=== PATIENT | female | born 1965 | race Caucasian/White ===

== ENCOUNTER 2016-12-12 17:56 | Inpatient (IN) ==
[2016-12-12] MEDS ORDERED: SODIUM CHLORIDE 0.9% 2,000 ML IV STA (18:22)
[2016-12-12] MEDS ORDERED: METOCLOPRAMIDE 10 MG/2 ML VIAL IV STA (18:22)
[2016-12-12] MEDS ORDERED: ONDANSETRON 4 MG/2 ML VIAL IV STA (18:22)
--- NOTE | 2016-12-12 18:29 | Emergency Department Note ---
Arrival - Arrival Chief Complaint: Altered Mental Status Stated Complaint: overdose ED Nursing Triage Note: pt found in the yard by a home health nurse without her pants on passed out. smells of etoh Mode of Arrival: Stretcher Limitations: Altered Mental Status Source: EMS Time Seen by Provider: 12/12/16 18:22 - History of Present Illness HPI Narrative: This 51-year-old white female presents smelling of alcohol and severely intoxicated. Neighbors were called and when EMS arrived the patient was found without her pants on intoxicated on the front on. The patient cannot give any cognizant history at this time. Onset (ago): hour(s) (Patient was found to hours prior to presentation) Date of Last Menstrual Period: wont answer Allergies/Adverse Reactions: Allergies Allergy/AdvReac Type Severity Reaction Status Date / Time No Known Allergies Allergy Unverified 12/12/16 18:06 Home Medications: Home Medications Medication Instructions Recorded Confirmed Type Budesonide/Formoterol 80-4.5 2 puff INH BID 12/12/16 History [Symbicort 80-4.5] Lisinopril [Lisinopril] 5 mg PO DAILY 12/12/16 History Methocarbamol Tab [Robaxin Tab] 500 mg PO TID PRN 12/12/16 History Mirtazapine [Mirtazapine] 15 mg PO BEDTIME 12/12/16 History Montelukast Tab [Singulair Tab] 10 mg PO DAILY 12/12/16 History Omeprazole [Omeprazole] 20 mg PO BID 12/12/16 History Oxycodone HCl/Acetaminophen 1 each PO BID PRN 12/12/16 History [Oxycodone-Acetaminophen 10-325] Review of System - Review of System ROS unobtainable: due to mental status Medical,Surgical,& Family Hx - Medical History Psychological: History of: Bipolar Disorder - Social History Smoking Status: Unknown if ever smoked Exam Physical Examination: GENERAL: Disheveled intoxicated white female. HEENT: Normocephalic. No trauma. Moist mucous membranes. EOMI. PERRLA. ENT NML NECK: Supple. No adenopathy. CARDIAC: Regular. No murmurs. Heart rate 102 CHEST: Clear to auscultation. No respiratory distress. O2 sat 100% ABDOMEN: Soft. Nontender. Active bowel sounds. EXTREMITIES: No trauma. Normal ROM. No pedal edema. SKIN: No diaphoresis. No rash. NEURO: Alert but intoxicated and lethargic. Motor, sensory, vibratory intact. No focal deficits. Vital Signs: Vital Signs Temperature 98.6 F 12/12/16 18:20 Pulse Rate 94 H 12/12/16 18:30 Respiratory Rate 18 12/12/16 18:30 Blood Pressure 133/82 12/12/16 18:30 O2 Sat by Pulse Oximetry 97 12/12/16 18:30 Course Course Narrative: Given the slow drop in alcohol with time and the patient's persistent intoxication admission is necessary. - Reevaluation(s) Reevaluation #1: Discussed with patient the recommendation for admission. - Consultations Consultation #1: Discussed with the hospitalist service will admit for further evaluation treatment peer Results - Labs CBC & BMP: 12/12/16 18:24 12/12/16 18:24 Labs: I reviewed the laboratory and noted the significantly elevated alcohol level but otherwise grossly normal lab. I reviewed the follow-up alcohol level of 295. - Impressions EKG: Sinus rhythm at 94 with normal TN interval and QRS duration. Right axis deviation noted with diffuse nonspecific ST changes. No acute injury pattern noted. - Diagnostic Findings Procedure: Chest x-ray: image reviewed by me, report reviewed by me (Excepting for minimal mid left lung field atelectasis, normal chest), CT: image reviewed by me, report reviewed by me (Head: Normal brain) Disposition Clinical Impression: Alcohol intoxication Case discussed with: patient Condition: Guarded
[2016-12-12] MEDS ORDERED: METOCLOPRAMIDE 10 MG/2 ML VIAL ONE (18:37)
[2016-12-12] MEDS ORDERED: ONDANSETRON 4 MG/2 ML VIAL ONE (18:38)
[2016-12-12 18:43] LABS: Basophils # 0.1 10*3/uL (0.0-0.2); Basophils % 0.8 % (0.0-0.8); Eosinophils # 0.3 10*3/uL (0.0-0.87); Eosinophils % 2.7 % (0.00-10.9); Hematocrit 46.7 VOL% (35.7-47.0); Hemoglobin 15.7 GM/DL (12.0-16.0); Immature Granulocytes % 0.3 %; Immature Granulocytes Absolute 0.03 #; Lymphocytes # 2.4 10*3/uL (1.4-4.0); Lymphocytes % 22.6 % (21.3-54.2); Mean Corpuscular HGB Conc 33.6 GM/DL (32-36); Mean Corpuscular Hemoglobin 32 PG (27-34); Mean Corpuscular Volume 95.5 FL (87-102); Mean Platelet Volume 9.7 FL (9.6-12.0); Monocytes # 0.9 10*3/uL (0.11-0.8); Monocytes % 8.2 % (1.7-12.7); Neutrophils # 6.9 10*3/uL (1.4-7.4); Neutrophils % 65.4 % (38.7-73.9); Platelet Count 353 T/CUMM (130-400); Red Blood Count 4.89 MC/CUMM (3.8-5.5); Red Cell Distribution Width 13.5 % (9.3-17.3); White Blood Count 10.6 T/CUMM (4-12)
--- NOTE | 2016-12-12 18:53 | CT Report ---
CT of the head without contrast. Indication: Mental status changes. The ventricles are normal in size and configuration. There is no mass effect, midline shift, or area of hemorrhage. No ischemic lesions are seen. The calvarium is intact. The included paranasal sinuses and the mastoid air cells are clear. Impression: No acute intracranial abnormality is seen. The CT exam was performed using one or more of the following dose reduction techniques: Automated exposure control, adjustment of the mA and/or kV according to patient size, or use of iterative reconstruction technique. PROCEDURE INTERPRETED AT [facility] DEPARTMENT OF RADIOLOGY Final Report Signed by: Dr. Christi Sanders
--- NOTE | 2016-12-12 18:55 | XRay Report ---
Portable chest. Indication: Altered mental status. The heart is upper limits of normal in size. The pulmonary vasculature is normal. There is minimal atelectasis at the left midlung field. The right lung is clear. No pneumothorax or pleural effusion. Normal osseous structures. Engorged SVC. Impression: Minimal atelectasis in the left midlung field. Mild prominence of the SVC. PROCEDURE INTERPRETED AT [facility] DEPARTMENT OF RADIOLOGY Final Report Signed by: Dr. Christi Sanders
[2016-12-12 18:58] LABS: INR 0.9; Partial Thromboplastin Time 27.1 SECS (0-40)
--- NOTE | 2016-12-12 18:59 | Order Completion Report ---
See report scanned to EMR
[2016-12-12 19:10] LABS: Alanine Aminotransferase 18 U/L (13-56); Albumin 3.6 G/DL (3.4-5.0); Alkaline Phosphatase 86 U/L (45-117); Aspartate Amino Transferase 21 U/L (0-37); Bilirubin,Total < 0.39 MG/DL (0.2-1.0); Blood Urea Nitrogen 8 MG/DL (7-18); Calcium 8.6 MG/DL (8.5-10.1); Glucose 82 MG/DL (74-106); Osmolality,Calculated 279.1 MOS/KG (273-304); Potassium 3.8 MMOL/L (3.5-5.1); Sodium 142 MMOL/L (136-145); Total Protein 7.1 G/DL (6.4-8.3); Troponin I Only < 0.015 NG/ML (0.00-0.045)
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
[2016-12-12 23:55] LABS: Apearance,Urine CLEAR (Clear); Bilirubin,Urine Negative (Negative); Blood, Urine Small mg/dL (Negative); Glucose,Urine (UA) Negative (Negative); Ketones,Urine Negative (Negative); Mucus,Urine Occasional /LPF (Occasional); Nitrite,Urine Negative (Negative); Protein,Urine Negative; RBC,Urine <1 /HPF (0-4); Squamous Epithelial Cell,Urine Occasional /HPF (0-10); Urine Color Colorless (Yellow); Urine Specific Gravity 1.006 (1.001-1.035); Urine Urobilinogen < 2.0 EU/DL (0.2-1.0); WBC,Urine <1 /HPF (0-6)
[2016-12-12 23:59] LABS: Barbiturates Screen,Urine Negative (Negative); Benzodiazepines Screen,Urine Negative (Negative); Cannabinoid Screen,Urine Negative (Negative); Opiate Screen,Urine Negative (Negative); Phencyclidine Screen,Urine Negative (Negative)
[2016-12-13] MEDS ORDERED: ACETAMINOPHEN 325 MG TABLET PO PRN (00:23)
[2016-12-13] MEDS ORDERED: NICOTINE 21 MG/24 HR PATCH TRANSDERM PRN (00:23)
[2016-12-13] MEDS ORDERED: ONDANSETRON 4 MG/2 ML VIAL IV PRN (00:23)
[2016-12-13] MEDS ORDERED: PANTOPRAZOLE 40 MG VIAL IV SCH (00:23)
[2016-12-13] MEDS: oxyCODONE/ACETAMINOPHEN 5-325 MG TABLET PO PRN ×3 (00:41→13:10)
[2016-12-13] MEDS: SODIUM CHLORIDE 0.9% 1,000 ML IV SCH ×2 (00:44→07:25)
[2016-12-13] MEDS ORDERED: BUDESONIDE/FORMOTEROL 80-4.5 INHALER 6.9 GM INH SCH (09:00)
[2016-12-13] MEDS ORDERED: ENOXAPARIN 40 MG/0.4 ML SYRINGE SUBCUT SCH (09:00)
[2016-12-13] MEDS ORDERED: MONTELUKAST 10 MG TABLET PO SCH (09:00)
[2016-12-13] MEDS ORDERED: DOCUSATE SODIUM 100 MG CAPSULE PO SCH (09:00)
[2016-12-13] MEDS ORDERED: LISINOPRIL 5 MG TABLET PO SCH (09:00)
--- NOTE | 2016-12-13 11:06 | Hospitalist Progress Note ---
Assessment and Plan (1) Alcohol intoxication Status: Acute Assessment and plan: She is significantly improved today. There is no evidence of delirium tremens. I will transfer to a medical bed and if stable discharge tomorrow morning. Current Visit: Yes Qualifiers: Complication of substance-induced condition: uncomplicated Qualified Code(s ): F10.920 - Alcohol use, unspecified with intoxication, uncomplicated (2) Chronic pain Status: Chronic Current Visit: No Qualifiers: Chronic pain type: chronic pain syndrome Qualified Code(s): G89.4 - Chronic pain syndrome Hospitalist: Subjective Interval history: Patient is awake and alert today with no complaints. She states that she had no suicide intentions. She states that she was merely drinking a considerable amount of alcohol with a friend. Exam - Constitutional Vitals: Period Temp Pulse Resp BP Sys/Mohr Pulse Ox Last 24 Hr 98.3 F-99 F 81-104 12-22 95-147/60-91 90-100 General appearance: no acute distress - Head Head exam: Present: normal inspection - Neck Neck exam: Present: normal inspection - Respiratory Respiratory exam: Present: clear to auscultation bilaterally - Cardiovascular Cardiovascular exam: Present: regular rate and rhythm - GI/Abdominal GI/Abdominal exam: Present: normal bowel sounds, soft, other (Nontender with no palpable masses or hepatosplenomegaly.) - Extremities Exam Extremities exam: Present: normal inspection - Neurological Exam Neurological exam: Present: alert, oriented X3 - Skin Skin exam: Present: normal color, warm, intact Results - Labs CBC & BMP: 12/12/16 18:24 12/12/16 18:24
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
[2016-12-13 13:29] VITALS: BP 127/81
[2016-12-15] MEDS ORDERED: PNEUMOCOCCAL VACCINE (13 VALENT) 0.5 ML SYRINGE IM ONE (09:00)
[2016-12-15] MEDS ORDERED: INFLUENZA VIRUS VACCINE 0.5 ML SYRINGE IM ONE (09:00)
== END 2016-12-13 14:25 | disposition home or self-care (01) | DRG 775 ==
LOC: EDUNIT# → EDBD → N.ED 17:56 → N.EDINP 23:26 → N.ICU 23:41